=== PATIENT | female | born 1985 | race Hispanic/Latino ===

== ENCOUNTER 2022-01-22 10:58 | Emergency (ER) | payer OTHER ==
[2022-01-22] MEDS ORDERED: NA CHLORIDE 0.9% 1,000 ML ONE (11:53)
[2022-01-22 11:56] LABS: Urine Blood Negative (Negative); Urine Glucose 3+ (Negative); Urine Protein Negative (Negative); Urine Specific Gravity 1.015 (1.005-1.030)
[2022-01-22 11:59] LABS: Absolute Lymphocytes (CBC) 0.8 K/uL (0.7-4.9); Hematocrit 42.9 % (36.0-45.0); Lymphocytes % 6.3 % (15.3-44.8); MPV 8.4 fL (7.6-11.3); RBC Red Blood Cell Count 5.11 M/uL (3.86-4.86)
[2022-01-22 12:16] LABS: Albumin 3.8 g/dL (3.4-5.0); Bilirubin Total 1.3 mg/dL (0.2-1.0); Potassium 4.3 mmol/L (3.5-5.1); Protein, Total 8.6 g/dL (6.4-8.2)
--- NOTE | 2022-01-22 13:06 | RAD REPORT ---
EXAM DESCRIPTION: CT - Abdomen Pelvis W Contrast - 01/22/2022 12:51 pm CLINICAL HISTORY: Abdominal pain, acute, nonlocalized COMPARISON: Abdomen Pelvis W Contrast dated 09/27/2020 TECHNIQUE: Biphasic, helical CT imaging of the abdomen and pelvis was performed following 100 ml non -ionic IV contrast. No oral contrast administered. All CT scans are performed using dose optimization technique as appropriate and may include automated exposure control or mA/KV adjustment according to patient size. FINDINGS: No suspicious findings in the lung bases. Diffuse fatty infiltration pattern again noted in the liver. No focal liver lesion. No portal vein ab normality. Pancreas and spleen are unremarkable. Gallbladder and biliary tree are also without suspic ious finding. Symmetric renal function is seen with no hydronephrosis or suspicious renal mass. No pyelonephritis o r acute parenchymal process. Partially filled urinary bladder does not show abnormal wall thickening or enhancement. No bladder stones seen. Minimal cystitis would still be possible. No adrenal abnormal ities. No uterine or left ovarian abnormality seen. A 2.2 cm cyst is present in the right ovary. No c yst rupture or hemorrhage findings. No fallopian tube dilatation. No gastric dilatation or gastric wall thickening. Small bowel loops are not dilated. There are few pr ominent fluid-filled small bowel loops present. A nonspecific enteritis would be possible if there ar e matching clinical findings. Colon has minimal sigmoid diverticulosis without an acute process. No e vidence for appendicitis. No free air, free fluid or inflammatory stranding. No hernia, mass or bulky lymphadenopathy. Minimal stranding is seen in the lower abdominal wall from prior . No abdominal wall hematoma or ma ss. No acute vascular finding. No acute bone finding is identifiable. 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 This is a potential source for low back pain. IMPRESSION: No pyelonephritis or acute renal or ureteral finding. Urinary bladder is not grossly abn ormal. A mild cystitis cannot be entirely excluded. Small right ovarian 2.2 cm cyst without cyst rupture or hemorrhage. A few mildly prominent small bowel loops are present. Nonspecific enteritis is possible if the patien t has any matching symptoms. L5 spondylolysis without spondylolisthesis. This can be a source for low back pain.
--- NOTE | 2022-01-22 13:14 | ER ---
Nurse's Notes [facility] Name: Kiera Cordoba Age: 36 yrs Sex: Female : 1985 Arrival Date: 01/22/2022 Time: 11:00 Bed 12 Private MD: Roberto Pearson Diagnosis: Infectious gastroenteritis and colitis, unspecified;Hyperglycemia, unspecified;Dehydration;Nausea with vomiting, unspecified;Diarrhea, unspecified Presentation: 01/22 11:12 Chief complaint: Patient states: nausea/vomiting and diarrhea since yesterday. Reports aa5 blood glucose was 50 to 60 yesterday. Pt also c/o back pain. Coronavirus screen: diarrhea, vomiting. Ebola Screen: No symptoms or risks identified at this time. Initial Sepsis Screen: Does the patient meet any 2 criteria? No. Patient's initial sepsis screen is negative. Does the patient have a suspected source of infection? No. Patient's initial sepsis screen is negative. Risk Assessment: Do you want to hurt yourself or someone else? Patient reports no desire to harm self or others. Onset of symptoms was December 2021. 11:12 Method Of Arrival: Ambulatory aa5 11:12 Acuity: ANDER 3 aa5 Triage Assessment: 11:12 General: Appears uncomfortable, Behavior is calm, cooperative. Pain: Complains of pain aa5 in back. EENT: No signs and/or symptoms were reported regarding the EENT system. Neuro: Level of Consciousness is awake, alert, obeys commands, Oriented to person, place, time, situation. Cardiovascular: Heart tones S1 S2 present Rhythm is regular. Respiratory: Airway is patent Respiratory effort is even, unlabored, Respiratory pattern is regular, symmetrical. GI: Abdomen is round non-distended, Bowel sounds present X 4 quads. Abd is soft and non tender X 4 quads. Reports diarrhea, nausea, vomiting. : No signs and/or symptoms were reported regarding the genitourinary system. Derm: Skin is pink, warm \T\ dry. Musculoskeletal: Range of motion: intact in all extremities. 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 - Social history:: Smoking status: Patient denies any tobacco usage or history of. - Family history:: not pertinent. - Hospitalizations: : No recent hospitalization is reported. Screenin:24 Abuse screen: Denies threats or abuse. Denies injuries from another. Nutritional ss screening: No deficits noted. Tuberculosis screening: Never had TB. Fall Risk None identified. Assessment: 11:49 Reassessment: Patient is alert, oriented x 3, equal unlabored respirations, skin aa5 warm/dry/pink. 13:24 General: Appears in no apparent distress. comfortable. Pain: Denies pain. Neuro: ss Canales Agitation-Sedation Scale (RASS): 0 - Alert and Calm Level of Consciousness is awake, alert, obeys commands, Oriented to person, place, time, situation. Cardiovascular: Capillary refill < 3 seconds is brisk in bilateral. Respiratory: Airway is patent Respiratory effort is even, unlabored, Respiratory pattern is regular, symmetrical. GI: Reports diarrhea, nausea, vomiting. GI: Abdomen is non-distended. EENT: Throat is clear. Derm: Skin is intact, is healthy with good turgor, Skin is dry, Skin is pink, warm \T\ dry. normal. Musculoskeletal: Circulation, motion, and sensation intact. Range of motion: intact in all extremities, Swelling. Vital Signs: 11:12 BP 129 / 92; Pulse 100; Resp 18 S; Temp 98.1(O); Pulse Ox 100% on R/A; Weight 67.13 kg aa5 (R); Height 5 ft. 3 in. (160.02 cm) (R); 11:12 Body Mass Index 26.22 (67.13 kg, 160.02 cm) aa5 ED Course: 11:00 Patient arrived in ED. am2 11:12 Kun Pearson MD is Private Physician. am2 11:12 Roberto Pearson DO is Private Physician. am2 11:12 Arm band placed on. aa5 11:14 Triage completed. aa5 11:22 Carlos Lakhani MD is Attending Physician. rn 11:37 Bhavani Felipe RN is Primary Nurse. aa5 12:53 Abdomen In Process Unspecified. EDMS 13:24 Patient has correct armband on for positive identification. Bed in low position. Call ss light in reach. 13:26 No provider procedures requiring assistance completed. IV discontinued, intact, ss bleeding controlled, No redness/swelling at site. Pressure dressing applied. Administered Medications: 11:49 Drug: NS 0.9% 1000 ml Route: IV; Rate: 1 bolus; Site: left forearm; aa5 Medication: 13:24 VIS not applicable for this client. Point of Care Testing: Blood Glucose: 11:19 Blood Glucose: 210 mg/dL; aa5 Ranges: Outcome: 13:13 Discharge ordered by . rn 13:26 Discharged to home ambulatory. 13:26 Condition: improved 13:26 Discharge instructions given to patient, family, Instructed on discharge instructions, follow up and referral plans. medication usage, Demonstrated understanding of instructions, follow-up care, medications, Prescriptions given X 1. 13:28 Patient left the ED. Signatures: Dispatcher [employer] EDCarlos Joy MD MD rn Calderon, Audri RN RN aa5 Giselle Brown RN RN Donna Turcios am2
--- NOTE | 2022-01-22 13:14 | EDPHYS ---
Physician Documentation [facility] Name: Kiera Cordoba Age: 36 yrs Sex: Female : 1985 Arrival Date: 01/22/2022 Time: 11:00 Bed 12 Private MD: [facility] ED Physician Carlos Lakhani HPI: 01/22 11:46 This 36 yrs old Female presents to ER via Ambulatory with complaints of Low rn Blood Sugar, Nausea/Vomiting/Diarrhea, Fever. 11:46 The patient presents to the emergency department with nausea, vomiting, diarrhea, rn abdominal pain. Onset: The symptoms/episode began/occurred yesterday. Possible causes: unknown. The symptoms are aggravated by nothing. The symptoms are alleviated by nothing. Associated signs and symptoms: Pertinent positives: abdominal pain, diarrhea, fever, nausea, vomiting, Pertinent negatives: GI bleeding. Severity of symptoms: At their worst the symptoms were moderate in the emergency department the symptoms have improved. The patient has not experienced similar symptoms in the past. The patient has not recently seen a physician. No known sick contacts.. 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 - Social history:: Smoking status: Patient denies any tobacco usage or history of. - Family history:: not pertinent. - Hospitalizations: : No recent hospitalization is reported. ROS: 11:46 Constitutional: + fever Eyes: Negative for injury, pain, redness, and discharge, Neck: rn Negative for injury, pain, and swelling, Cardiovascular: Negative for chest pain, palpitations, and edema, Respiratory: Negative for shortness of breath, cough, wheezing, and pleuritic chest pain, Abdomen/GI: + abd pain/nausea/vomiting/diarrhea Back: + low back pain MS/Extremity: Negative for injury and deformity, Skin: Negative for injury, rash, and discoloration, Neuro: + generalized weakness Endocrine: + low blood sugar Exam: 11:46 Constitutional: This is a well developed, well nourished patient who is awake, alert, rn and in no acute distress. Head/Face: Normocephalic, atraumatic. Eyes: Periorbital areas with no swelling, redness, or edema. ENT: dry MM Cardiovascular: Tachycardic, regular. No pulse deficits. Respiratory: No increased work of breathing, no retractions or nasal flaring. Abdomen/GI: Soft, + mid abd tenderness, no rebound, no masses Skin: Warm, dry MS/ Extremity: Pulses equal, no cyanosis Neuro: Awake and alert, GCS 15 Vital Signs: 11:12 BP 129 / 92; Pulse 100; Resp 18 S; Temp 98.1(O); Pulse Ox 100% on R/A; Weight 67.13 kg aa5 (R); Height 5 ft. 3 in. (160.02 cm) (R); 11:12 Body Mass Index 26.22 (67.13 kg, 160.02 cm) aa5 MDM: 11:22 Patient medically screened. rn 13:12 Differential diagnosis: Nonspecific abd pain, gastritis, appendicitis, viral rn gastroenteritis, gastroenteritis. Data reviewed: vital signs, nurses notes, lab test result(s), radiologic studies, CT scan, and as a result, I will discharge patient. Counseling: I had a detailed discussion with the patient and/or guardian regarding: the historical points, exam findings, and any diagnostic results supporting the discharge/admit diagnosis, lab results, radiology results, the need for outpatient follow up, to return to the emergency department if symptoms worsen or persist or if there are any questions or concerns that arise at home. Response to treatment: the patient's symptoms have markedly improved after treatment, and as a result, I will discharge patient. Special discussion: Based on the patient's Hx, exam, and Dx evaluation, there is no indication for emergent surgery or inpatient Tx. It is understood by the patient/guardian that if the Sx's persist or worsen they need to return immediately for re-evaluation. I discussed with the patient/guardian in detail that at this point there is no indication for admission to the hospital. It is understood, however, that if the symptoms persist or worsen the patient needs to return immediately for re-evaluation. ED course: Pt feels much better, hydrated with IV fluids, tolerates PO, will dc home as viral syndrome and prn zofran.. 01/22 11:32 Order name: Glucose, Ancillary Testing; Complete Time: 11:39 EDMS 01/22 11:44 Order name: CBC with Diff; Complete Time: 13:08 rn 01/22 11:44 Order name: CMP; Complete Time: 13:08 rn 01/22 11:44 Order name: Lipase; Complete Time: 13:08 rn 01/22 11:45 Order name: SARS-COV-2 RT PCR (Document "Date of Onset" if Symptomatic) rn 01/22 11:45 Order name: Flu; Complete Time: 13: rn 01/22 11:44 Order name: CT Abd/Pelvis - IV Contrast Only rn 01/22 11:44 Order name: IV Saline Lock; Complete Time: 11:46 rn 01/22 11:44 Order name: Labs collected and sent; Complete Time: 11:46 01/22 11:44 Order name: Urine Dipstick-Ancillary (obtain specimen); Complete Time: 11:46 01/22 11:44 Order name: Urine Test (obtain specimen); Complete Time: 11:46 01/22 11:48 Order name: Abdomen ; Complete Time: 13:08 EDNM 01/22 11:57 Order name: Urine Dipstick-Ancillary; Complete Time: 13:08 EDMS Administered Medications: 11:49 Drug: NS 0.9% 1000 ml Route: IV; Rate: 1 bolus; Site: left forearm; aa5 Point of Care Testing: Blood Glucose: 11:19 Blood Glucose: 210 mg/dL; aa5 Ranges: Critical Glucose Levels:Adult <50 mg/dl or >400 mg/dl <40 mg/dl or >180 mg/dl Disposition Summary: 01/22/22 13:13 Discharge Ordered Location: Home rn Problem: new rn Symptoms: have improved rn Condition: Stable rn Diagnosis - Infectious gastroenteritis and colitis, unspecified rn - Hyperglycemia, unspecified rn - Dehydration rn - Nausea with vomiting, unspecified rn - Diarrhea, unspecified rn Followup: rn - With: Private Physician - When: As needed - Reason: Recheck today's complaints, Re-evaluation by your physician Discharge Instructions: - Discharge Summary Sheet rn - Dehydration, Adult rn - Diarrhea, Adult rn - Hyperglycemia rn - Nausea and Vomiting, Adult rn - Viral Gastroenteritis, Adult rn - Blood Glucose Monitoring, Adult rn Forms: - Medication Reconciliation Form rn - Thank You Letter rn - 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
[2022-01-22 13:34] VITALS: BP 129/92; TEMP 98.1; O2SAT 100
== END 2022-01-22 13:28 | disposition home or self-care (01) ==
LOC: ER 10:58
DX: A09 Infectious gastroenteritis and colitis, unspecified (principal); E86.0 Dehydration; E11.65 Type 2 diabetes mellitus with hyperglycemia; I10 Essential (primary) hypertension; Z20.822 Contact with and (suspected) exposure to COVID-19; Z88.1 Allergy status to other antibiotic agents
CPT/HCPCS: 85025; 36415; 82947; 81003; 83690; 80053; 87804 ×2; 74177; 99283; U0003; Q9967; J7030

== ENCOUNTER 2023-03-28 06:04 | Day surgery (SDC) | payer OTHER ==
[2023-03-25 11:22] LABS: Absolute Lymphocytes (CBC) 2.6 K/uL (0.7-4.9); Hematocrit 41.4 % (36.0-45.0); Lymphocytes % 31.4 % (15.3-44.8); MCV 88.9 fL (80-100); RBC Red Blood Cell Count 4.65 M/uL (3.86-4.86)
[2023-03-25 11:33] LABS: Protime INR 0.84
[2023-03-25 11:43] LABS: Potassium 3.9 mEq/L (3.5-5.1)
[2023-03-28 06:28] LABS: Specific Gravity > 1.030 (1.005-1.030); Urine Bacteria None Seen /HPF (<20); Urine Bilirubin NEGATIVE (Negative); Urine Blood 3+ (OVER) (Negative); Urine Clarity Extremely Turbid (Clear); Urine Color Yellow (Yellow); Urine Glucose 4+ (Over) (Negative); Urine Mucus Slight /HPF (None Seen); Urine Protein 1+ (Negative); Urine RBC >50 /HPF (None Seen); Urine Urobilinogen Normal (Normal); Urine pH 6.5 (5.0-7.0)
[2023-03-28] MEDS ORDERED: CEFAZOLIN SODIUM 2 GM/VIAL ONE (06:35)
[2023-03-28] MEDS ORDERED: NA CHLORIDE 0.9% 1,000 ML ONE ×2 (06:35→09:14)
[2023-03-28] MEDS ORDERED: dexAMETHasone 10 MG/ML VIAL ONE ×2 (06:56→07:29)
[2023-03-28] MEDS ORDERED: EPINEPHRINE/PF 1 MG/ML AMP ONE ×2 (06:56→07:54)
[2023-03-28] MEDS ORDERED: MIDAZOLAM HCL 2 MG/2 ML INJ ONE ×2 (06:56→07:25)
[2023-03-28] MEDS ORDERED: FENTANYL CITR 100 MCG/2 ML ONE ×2 (06:56→07:25)
[2023-03-28] MEDS ORDERED: LIDOCAINE 1% MPF 5 ML VIAL ONE (06:56)
[2023-03-28] MEDS ORDERED: propofoL 200 MG/20 ML VIAL IV ONE (07:25)
[2023-03-28] MEDS ORDERED: LIDOCAINE 2% MPF 5 ML VIAL ONE (07:25)
[2023-03-28] MEDS ORDERED: ONDANSETRON 4 MG/2 ML VIAL ONE (07:25)
[2023-03-28] MEDS ORDERED: ROCURONIUM 50 MG/5 ML VIAL IV ONE (07:25)
[2023-03-28] MEDS ORDERED: CEFTRIAXONE 1000 MG/VIAL ONE (07:46)
[2023-03-28] MEDS ORDERED: Phenylephrine HCl 10 MG/ML 1 ML VIAL ONE (09:06)
[2023-03-28] MEDS ORDERED: NS 0.9% VIAL 10 ML ONE (09:08)
[2023-03-28] MEDS ORDERED: KETOROLAC 30 MG/ML INJ ONE (09:20)
[2023-03-28] MEDS ORDERED: NEOSTIGMINE 1 MG/ML -10 ML VIAL ONE (09:23)
[2023-03-28] MEDS ORDERED: GLYCOPYRROLATE 0.2 MG/ML SYR ONE ×2 (09:23→09:24)
[2023-03-28 09:59] VITALS: TEMP 97
--- NOTE | 2023-03-28 10:12 | RAD REPORT ---
EXAM DESCRIPTION: RAD - Shoulder 1 View - 03/28/2023 10:05 am CLINICAL HISTORY: s/p rotator cuff debride-L shoulder manipulation COMPARISON: Shoulder Left Wo Cont dated 11/25/2022 FINDINGS/IMPRESSION: Single view of the left shoulder. No dislocation or fracture appreciated.
--- NOTE | 2023-03-28 10:13 | P.BOP ---
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
[2023-03-28 12:13] VITALS: BP 119/71; O2SAT 98
== END 2023-03-28 11:48 | disposition home or self-care (01) ==
LOC: OR 06:04
PROVIDERS: ATTEND Orthopaedic Surgery Sports Medicine
PROC: 0RJK4ZZ Inspection of Left Shoulder Joint, Percutaneous Endoscopic Approach (ICD-10-PCS; principal; 2023-03-28 08:00)
PROC: 0RNK4ZZ Release Left Shoulder Joint, Percutaneous Endoscopic Approach (ICD-10-PCS; 2023-03-28 08:00)
DX: S46.812A Strain of other muscles, fascia and tendons at shoulder and upper arm level, left arm, initial encounter (principal); M75.22 Bicipital tendinitis, left shoulder; M75.02 Adhesive capsulitis of left shoulder
CPT/HCPCS: 29822; 29825; 87088; 85025; 81001; 87086; 80048; 36415; 81025; 85610; 82947 ×2; 85730; 87077; 87186; 73020; A4216; J2704; J2710; J0171 ×2; J2001 ×2; J2371; J2250; J3010; J1100 ×2; J2405; J7030 ×2; J0696

== ENCOUNTER 2023-09-22 07:25 | Day surgery (SDC) | payer OTHER ==
[2023-09-22] MEDS ORDERED: propofoL 200 MG/20 ML VIAL IV ONE (08:17)
[2023-09-22] MEDS ORDERED: LIDOCAINE 1% MPF 5 ML VIAL ONE (08:17)
[2023-09-22] MEDS: NA CHLORIDE 0.9% 1,000 ML ONE (08:24)
[2023-09-22 09:19] VITALS: O2SAT 100
[2023-09-22 10:18] VITALS: BP 117/73; TEMP 97
--- NOTE | 2023-09-22 16:51 | EKG ---
Test Date: 2023-09-22 Test Time: 09:07:59 Office Clin Asst: HENRY MEASUREMENT RESULTS: Intervals: Rate: 78 CT: 134 QRSD: 78 QT: 376 QTc: 428 [place]: P: 22 CT: 134 QRS: 34 T: 0 INTERPRETIVE STATEMENTS: Normal sinus rhythm Normal ECG Compared to ECG 12/06/2022 14:02:21 Myocardial infarct finding no longer present Electronically Signed On 09-22-23 16:50:34 CONTACT CENTER AGENT by Jacinto Zaidi
== END 2023-09-22 09:58 | disposition home or self-care (01) ==
LOC: OR 07:25
PROVIDERS: ATTEND Surgery
PROC: 0DBM8ZX Excision of Descending Colon, Via Natural or Artificial Opening Endoscopic, Diagnostic (ICD-10-PCS; principal; 2023-09-22 08:30)
DX: R19.4 Change in bowel habit (principal); R10.9 Unspecified abdominal pain; K63.5 Polyp of colon; E11.9 Type 2 diabetes mellitus without complications; E78.00 Pure hypercholesterolemia, unspecified; F41.9 Anxiety disorder, unspecified; F32.A Depression, unspecified; K52.9 Noninfective gastroenteritis and colitis, unspecified; K63.89 Other specified diseases of intestine; K64.8 Other hemorrhoids; K64.4 Residual hemorrhoidal skin tags
CPT/HCPCS: 45380; 93005; 82947; 88305; J2704; J2001; J7030; 88304